=== PATIENT | male | born 1965 | race Caucasian/White ===

== ENCOUNTER 2021-12-27 10:11 | Emergency (ER) | payer OTHER ==
[2021-12-27] MEDS ORDERED: Sodium Chloride 0.9% 10 ML Syringe FLUSH PRN (11:25)
[2021-12-27] MEDS ORDERED: LORazepam 2 MG/ML SDV IVPUSH STA (11:26)
[2021-12-27] MEDS ORDERED: Metoclopramide 10 MG/2 ML SDV IVPUSH ONE (11:26)
[2021-12-27 12:03] LABS: ESTIMATED GFR 88 mL/min (>60)
== END 2021-12-27 13:52 | disposition home or self-care (01) ==
LOC: JD.ED 10:11 → MERGE 10:11 → JD.ED 13:52
DX: R42 Dizziness and giddiness (principal); Z20.822 Contact with and (suspected) exposure to COVID-19
CPT/HCPCS: 36415; 70450; 80053; 81003; 83735; 84443; 85025; 86140; 87635; 93005; 96374; 96375; 99284; J2060; J2765; J3490; 93010; U0002

== ENCOUNTER 2022-03-05 13:20 | Emergency (ER) | payer OTHER ==
[2022-03-05] MEDS ORDERED: Ondansetron 4 MG/2 ML SDV IVPUSH ONE (13:52)
[2022-03-05] MEDS ORDERED: Sodium Chloride 0.9% 10 ML Syringe FLUSH PRN ×2 (13:52→15:07)
[2022-03-05] MEDS ORDERED: Sodium Chloride 0.9% 1,000 ML IV SCH (14:00)
[2022-03-05 14:22] LABS: ESTIMATED GFR 71 mL/min (>60)
[2022-03-05] MEDS ORDERED: Iopamidol 755 Mg/ML 100 ML Bottle IVPUSH ONE (15:07)
[2022-03-05] MEDS ORDERED: Sodium Chloride 0.9% 100 ML IV SCH (15:15)
== END 2022-03-05 16:50 | disposition home or self-care (01) ==
LOC: JD.ED 13:20
DX: R42 Dizziness and giddiness (principal); Z79.899 Other long term (current) drug therapy
CPT/HCPCS: 36415; 70450; 70496; 70498; 80053; 83690; 83735; 84484; 85025; 86140; 96361; 96374; 99284; A9270; J2405; J3490; J7030; Q9967

== ENCOUNTER 2022-07-01 08:28 | Emergency (ER) | payer OTHER ==
[2022-07-01] MEDS ORDERED: Ondansetron 4 MG/2 ML SDV IVPUSH ONE (08:52)
[2022-07-01] MEDS ORDERED: Sodium Chloride 0.9% 1,000 ML IV STA (08:52)
[2022-07-01] MEDS ORDERED: Sodium Chloride 0.9% 10 ML Syringe FLUSH PRN (08:52)
[2022-07-01] MEDS ORDERED: Meclizine 25 MG Tab PO ONE (08:53)
== END 2022-07-01 10:56 | disposition home or self-care (01) ==
LOC: JD.ED 08:28
DX: R42 Dizziness and giddiness (principal); R11.2 Nausea with vomiting, unspecified
CPT/HCPCS: 36415; 80053; 85025; 96361; 96374; 99284; J2405; J3490; J7030

== ENCOUNTER 2022-07-30 20:55 | Emergency (ER) | payer OTHER | END 2022-07-30 22:33 | disposition home or self-care (01) | LOC: JD.ED 20:55 | DX: I10 Essential (primary) hypertension (principal); Z79.899 Other long term (current) drug therapy | CPT/HCPCS: 36415; 80053; 84484; 85025; 93005; 99283 ==